=== PATIENT | female | born 1995 | race Caucasian/White ===

== ENCOUNTER 2017-06-06 21:45 | Emergency (ER) | payer SELFPAY ==
--- NOTE | 2017-06-06 21:59 | NUR ---
CALLED FOR TRIAGE; NOT IN LOBBY.
--- NOTE | 2017-06-06 22:07 | NUR ---
CALLED [facility] X2; NO ANSWER.
--- NOTE | 2017-06-06 22:31 | NUR ---
CALLED AGAIN; NO ANSWER
== END 2017-06-06 22:39 | disposition left against medical advice (07) ==
LOC: ER 21:55
DX: Z53.21 Procedure and treatment not carried out due to patient leaving prior to being seen by health care provider (principal)
CPT/HCPCS: A4606; Z7610

== ENCOUNTER 2017-06-14 23:43 | Emergency (ER) | payer SELFPAY ==
--- NOTE | 2017-06-14 23:50 | NUR ---
PT CALLED NO ANSWER IN LOBBY
--- NOTE | 2017-06-15 | NUR ---
CALLED NO ANSWER IN LOBBY
== END 2017-06-15 00:01 | disposition left against medical advice (07) ==
LOC: ER 23:45
DX: Z53.21 Procedure and treatment not carried out due to patient leaving prior to being seen by health care provider (principal)